=== PATIENT | female | born 2000 | race Hispanic/Latino ===

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

== ENCOUNTER 2024-02-06 10:12 | Outpatient (CLI) | payer MEDICAID | END 2024-02-06 10:13 | disposition home or self-care (01) | LOC: BICULT 10:12 | DX: Z34.82 Encounter for supervision of other normal pregnancy, second trimester (principal); Z3A.22 22 weeks gestation of pregnancy | CPT/HCPCS: 76805 ==

== ENCOUNTER 2024-10-18 10:06 | Emergency (ER) | payer MEDICAID | END 2024-10-18 10:43 | disposition home or self-care (01) | LOC: ERS 10:06 | DX: U07.1 COVID-19 (principal) | CPT/HCPCS: 99283 ==